=== PATIENT | male | born 1945 | race Caucasian/White ===

== ENCOUNTER 2018-08-18 11:45 | Observation (INO) ==
--- NOTE | 2018-08-18 12:23 | ED ---
HPI General Chief complaint: Skin/Abscess/Foreign Body Stated complaint: Throat Complaint Time Seen by Provider: 08/18/18 11:59 Source: patient Mode of arrival: ambulatory Limitations: no limitations History of Present Illness HPI narrative: Patient is a 73-year-old male with a history of atrial fib on Xarelto who presents to the emergency room with complaints of difficulty swallowing. She states he ate some steak last night and has been unable to keep liquids down since that time. Patient states he has had 2 prior episodes of similar incident which required EGD for retrieval of the retained food item. She is visiting here from [place] so does not have a local gastrointestinal specialist. Upon arrival the patient's heart rate is 172 with a BP of 2 10/01/2016. He states he was unable to take his morning medications due to inability to swallow. He complains of more epigastric discomfort secondary to difficulty swallowing. Related Data Home Medications Medication Instructions Recorded Confirmed albuterol sulfate [ProAir HFA] 2 puff INHALATION Q4H PRN 08/18/18 08/18/18 allopurinol [Zyloprim] 100 mg PO DAILY 08/18/18 08/18/18 atorvastatin [Lipitor] 20 mg PO DAILY 08/18/18 08/18/18 esomeprazole magnesium [Nexium] 40 mg PO DAILY 08/18/18 08/18/18 fluticasone [Flonase Allergy 2 spray INTRANASAL DAILY 08/18/18 08/18/18 Relief] furosemide [Lasix] 20 mg PO DAILY 08/18/18 08/18/18 losartan [Cozaar] 50 mg PO DAILY 08/18/18 08/18/18 magnesium oxide 400 mg PO TID 08/18/18 08/18/18 metformin 1,000 mg PO BID 08/18/18 08/18/18 metoprolol tartrate [Lopressor] 150 mg PO BID 08/18/18 08/18/18 omega-3 acid ethyl esters 1 cap PO TID 08/18/18 08/18/18 omeprazole 20 mg PO DAILY 08/18/18 08/18/18 potassium chloride 20 meq PO BID 08/18/18 08/18/18 rivaroxaban [Xarelto] 20 mg PO QPM 08/18/18 08/18/18 Allergies Allergy/AdvReac Type Severity Reaction Status Date / Time No Known Allergies Allergy Verified 02/16/19 12:01 Review of Systems ROS: all other systems reviewed are negative [facility] Medical History Medical History Atrial fibrillation (Acute) CHF (congestive heart failure) (Acute) COPD (chronic obstructive pulmonary disease) (Acute) Chronic GERD (Acute) Diabetes (Acute) FH: cholecystectomy (Acute) Gout (Acute) HTN (hypertension) (Acute) High cholesterol (Acute) History of sinus problem (Acute) Surgical History Surgical History History of bronchoscopy (Acute) Social History Social History Substance History: No History of Abuse Second Hand Smoke Exposure: No Smoking Status: Former smoker How Often Do You Have a Drink Containing Alcohol: 2 to 4 times a month Recent Travel in [facility] within the Last 8 Weeks: No Recent Out of Country Travel within the Last 8 Weeks: No Immunization History Tetanus Immunization: <5 Years Exam Narrative Exam Narrative: GENERAL: Alert, morbidly obese, male. SKIN: Focused skin assessment warm/dry. Chronic cellulitis bilateral lower extremities. HEAD: Atraumatic. Normocephalic. EYES: Pupils equal and round. No scleral icterus. No injection or drainage. ENT: No nasal bleeding or discharge. Mucous membranes pink and moist. NECK: Trachea midline. No JVD. CARDIOVASCULAR: Regular rate and rhythm. No murmur appreciated. RESPIRATORY: No accessory muscle use. Clear to auscultation. Breath sounds equal bilaterally. GASTROINTESTINAL: Abdomen soft, epigastric tenderness. Nondistended. Hepatic and splenic margins not palpable. MUSCULOSKELETAL: No obvious deformities. No clubbing. No cyanosis. No edema. NEUROLOGICAL: Awake and alert. No obvious cranial nerve deficits. Motor grossly within normal limits. Normal speech. PSYCHIATRIC: Appropriate mood and affect; insight and judgment normal. Course Reevaluation(s) Reevaluation #1: Patient had food bolus obstruction which was removed with EGD. Dr. pacheco states that patient need to be placed on a Cardizem drip and he will need to be admitted to the hospital for further care. This was from the operating room Consultations Consultation #1: dr wilson agrees to admit Initial Documented Vital Signs Temperature 97.4 F L 08/18/18 11:48 Pulse Rate 146 H 08/18/18 11:48 Respiratory Rate 18 08/18/18 11:48 Blood Pressure 170/110 H 08/18/18 11:48 Pulse Oximetry 96 08/18/18 11:48 Last Documented Vital Signs Temperature 97.2 F L 08/18/18 14:50 Pulse Rate 90 08/18/18 15:30 Respiratory Rate 17 08/18/18 15:30 Blood Pressure 119/64 08/18/18 15:30 Pulse Oximetry 97 08/18/18 15:30 Medical Decision Making BUSHRA Attestation BUSHRA supervised visit: Yes Attestation: I, Dr. pradhan, have reviewed the advance practice practitioner's documentation and am in agreement, met with the patient face to face, made the diagnosis, and the medical decision making was done by me. *My assessment and Findings: 73-year-old male who has a food bolus impaction type presentation where he cannot swallow water after having steak last night. He was not able to take his dose of metoprolol today and now he is in A. fib with RVR. He will be given a dose of IV Cardizem while we await GI who has agreed to scope him given his symptom presentation. If his heart rate goes up he will be given additional medications. MDM Narrative Medical decision making narrative: Patient is a 73-year-old male who presents the emergency room with complaints of meat being stuck from last night and difficulty swallowing. Patient has had 2 episodes of this previously and has required EGD for removal. He states no history of esophageal stricture/ dilation. Upon arrival patient's blood pressure is 204 117 with a heart rate of 172. He was unable to take his morning meds this morning. He was assessed at bedside and asked to swallow water. Within a minute he vomited. Dr. Pradhan spoke with GI, Dr. Hammond, and advised him of the situation. Patient will be given Cardizem IV for BP and heart rate control. To OR: Medical Screen Exam Complete: Yes Emergency Medical Condition: Yes Lab Data Result diagrams: 08/18/18 12:05 08/18/18 12:05 Lab Results 08/18/18 08/18/18 08/18/18 Range/Units 12:05 12:05 15:08 WBC 4.8 (4.0-11.0) th/mm3 RBC 4.48 L (4.50-5.90) mil/mm3 Hgb 14.3 (13.0-17.0) gm/dL Hct 41.1 (39.0-51.0) % MCV 91.9 (80.0-100.0) fL MCH 32.0 (27.0-34.0) pg MCHC 34.8 (32.0-36.0) % RDW 19.3 H (11.6-17.2) % Plt Count 209 (150-450) th/mm3 MPV 7.8 (7.0-11.0) fL Neut % (Auto) 57.2 (16.0-70.0) % Lymph % (Auto) 27.6 (9.0-44.0) % Orange % (Auto) 10.7 H (0.0-8.0) % Eos % (Auto) 3.8 (0.0-4.0) % Baso % (Auto) 0.7 (0.0-2.0) % Neut # (Auto) 2.7 (1.8-7.7) th/mm3 Lymph # (Auto) 1.3 (1.0-4.8) th/mm3 Orange # (Auto) 0.5 (0.0-0.9) th/mm3 Eos # (Auto) 0.2 (0.0-0.4) th/mm3 Baso # (Auto) 0.0 (0.0-0.2) th/mm3 WBC Differential . Differential Comment Auto diff final Sodium 139 (136-145) meq/L Potassium 3.8 (3.5-5.1) meq/L Chloride 102 (98-107) meq/L Carbon Dioxide 28.4 (21.0-32.0) meq/L Anion Gap 9 (5-15) meq/L BUN 14 (7-18) mg/dL Creatinine 0.91 (0.60-1.30) mg/dL Estimated GFR 82 L (>89) mL/min POC Glucose 95 (68-110) mg/dl Random Glucose 106 (74-106) mg/dL Calcium 9.3 (8.5-10.1) mg/dL Magnesium 1.5 (1.5-2.5) mg/dL Discharge Plan Discharge Disposition Patient Disposition: ED Admit(ED Internal Use Only) Discharge Order Discharge Orders: ED Use Only Admit Order (Routine); Ordered 08/18/18 Ordered By: Chanel Pradhan Discharge Details Diagnosis: Atrial fibrillation with RVR Physicians Team ED Provider: Chanel Pradhan ED Midlevel Provider: Evelyn Caraballo Primary Care Provider: [facility] Attending Provider: Shey Pacheco Discharge Interventions Interventions: Vital Signs Last Done: 08/18/18 15:30 Status ED Status: Admitted Observation Patient
[2018-08-18 12:45] LABS: Calcium 9.3 mg/dL (8.5-10.1); Carbon Dioxide 28.4 meq/L (21.0-32.0); Magnesium 1.5 mg/dL (1.5-2.5); Potassium 3.8 meq/L (3.5-5.1)
[2018-08-18 12:47] LABS: Baso % (Auto) 0.7 % (0.0-2.0); Eos # (Auto) 0.2 th/mm3 (0.0-0.4); Eos % (Auto) 3.8 % (0.0-4.0); Hematocrit 41.1 % (39.0-51.0); Hemoglobin 14.3 gm/dL (13.0-17.0); Lymph # (Auto) 1.3 th/mm3 (1.0-4.8); Lymph % (Auto) 27.6 % (9.0-44.0); Mean Corpuscular HGB Conc 34.8 % (32.0-36.0); Mean Corpuscular Volume 91.9 fL (80.0-100.0); Mean Platelet Volume 7.8 fL (7.0-11.0); Mono # (Auto) 0.5 th/mm3 (0.0-0.9); Mono % (Auto) 10.7 % (0.0-8.0); Neut # (Auto) 2.7 th/mm3 (1.8-7.7); Neut % (Auto) 57.2 % (16.0-70.0); Platelet Count 209 th/mm3 (150-450); Red Blood Count 4.48 mil/mm3 (4.50-5.90); Red Cell Distribution Width 19.3 % (11.6-17.2); White Blood Count 4.8 th/mm3 (4.0-11.0)
[2018-08-18] MEDS ORDERED: fentaNYL Citrate Inj 100 MCG/2 ML Ampul ONE (13:15)
[2018-08-18] MEDS ORDERED: Phenylephrine/NS 1000 MCG/10ML Syringe IV.PUSH ONE (13:50)
[2018-08-18] MEDS ORDERED: Lidocaine PF 1% Inj 5 ML Syringe OTHER ONE (13:50)
[2018-08-18] MEDS ORDERED: Succinylcholine Inj 100 MG/5 ML Syringe IV.PUSH ONE (13:50)
[2018-08-18] MEDS ORDERED: Metoprolol Inj 5 MG/5 ML Vial IV.PUSH ONE (13:50)
[2018-08-18] MEDS ORDERED: dilTIAZem Inj 125 MG in Sodium Chlor 0.9% Inj 100 ML IV.CONT PRN (14:21)
--- NOTE | 2018-08-18 14:46 | GIPROC ---
[facility] [address] [facility]. [facility], [address] EGD PROCEDURE REPORT EXAM DATE: 08/18/2018 PATIENT NAME: Zackary Tolbert MR #: [id number] BIRTHDATE: 1945 ATTENDING: Shey Pacheco MD ORDER #: [id number] FISH BIN TENDER: Salome Niño and Yarely Young STATUS: outpatient INDICATIONS: The patient is a 73 yr old male here for an EGD due to foreign body removal from esophagus and dysphagia PROCEDURE PERFORMED: EGD w/ fb removal MEDICATIONS: None and Per Anesthesia. TOPICAL ANESTHETIC: CONSENT: The patient understands the risks and benefits of the procedure and understands that these risks include, but are not limited to: sedation, allergic reaction, infection, perforation and/or bleeding. Alternative means of evaluation and treatment include, among others: physical exam, x-rays, and/or surgical intervention. The patient elects to proceed with this endoscopic procedure. medical equipment was checked for proper function. Hand hygiene and appropriate measures for infection prevention was taken. After the risks, benefits and alternatives of the procedure were thoroughly explained, Informed consent was verified, confirmed and timeout was successfully executed by the treatment team. The patient was anesthetized with topical anesthesia and the Pentax [id number] endoscope was introduced through the mouth and advanced to the second portion of the duodenum. Retroflexed views revealed no abnormalities The gastroscope was then slowly withdrawn and removed. ESOPHAGUS: Meat bolus distal esophagus. Pulled out piecemeal through the mouth. Esophageal narrowing distal esophagus. STOMACH: The mucosa of the stomach appeared normal. DUODENUM: The duodenal mucosa appeared normal in the bulb and second portion of the duodenum. ADVERSE EVENTS: There were no complications. IMPRESSIONS: 1. Meat bolus distal esophagus. Pulled out piecemeal through the mouth. Esophageal narrowing distal esophagus 2. The mucosa of the stomach appeared normal 3. Normal duodenal mucosa in the bulb and second portion of the duodenum 4. Retroflexed views revealed no abnormalities RECOMMENDATIONS: 1. Anti-reflux regimen 2. Continue PPI PATIENT CONDITION: stable DISPOSITION: Observation REPEAT EXAM: Return 1 month EGD with dilatation Shey Pacheco MD eSigned: Shey Pacheco MD 08/18/2018 2:46 PM cc: PATIENT NAME: Zackary Tolbert MR#: [id number]
--- NOTE | 2018-08-18 15:36 | MB ---
cc: Shey Pacheco MD, Cindy M MD DATE: 08/18/2018 REASON FOR CONSULTATION: Dysphagia, esophageal foreign body. HISTORY OF PRESENT ILLNESS: Mr. Roach is a 73-year-old gentleman who was in atrial fibrillation, takes Xarelto, basically presented after he was eating steak last night. He says since then he has not been able to eat or drink anything. He states he has had previous problems with this at least twice in [facility], last one was about a year or so ago where he had esophageal foreign body removed. He does not know if any other interventions were undertaken. He is not able to swallow his saliva at this time. REVIEW OF SYSTEMS: No apparent distress, rapid heart rate, dysphagia, inability to swallow saliva. PAST MEDICAL HISTORY: Atrial fibrillation, congestive heart failure, COPD, reflux disease, diabetes, gout, hypertension, hypercholesterolemia. PAST SURGICAL HISTORY: Cholecystectomy, previous EGD with foreign body removal, history of bronchoscopy. SOCIAL HISTORY: No alcohol. A former smoker. PHYSICAL EXAMINATION: GENERAL: Reveals an obese man, in no apparent distress. VITAL SIGNS: Stable. HEAD AND NECK: Anicteric sclerae. LUNGS: Bilateral air entry with rales. ABDOMEN: Obese, soft, nontender. No hepatosplenomegaly. Bowel sounds are present. CENTRAL NERVOUS SYSTEM: Nonfocal. RECTAL: Deferred at this time. IMPRESSION: Foreign body, meat impaction in the esophagus. RECOMMENDATIONS: Heart rate needs to be controlled. Emergent endoscopy under general anesthesia planned. Further recommendations to follow heard 1. Shey Pacheco MD / , 02:43 PM , 02:47 PM
[2018-08-18] MEDS ORDERED: Acetaminophen 325 MG Tablet PO PRN (15:52)
--- NOTE | 2018-08-18 16:08 | ECG ---
Date Performed: 08/18/2018 Time Performed: 11:58:05 PTAGE: 73 years EKG: ATRIAL FIBRILLATION WITH RAPID VENTRICULAR RESPONSE LEFT BUNDLE BRANCH BLOCK ABNORMAL ECG NO PREVIOUS TRACING DOCTOR: Zeus Ferrer Interpretating Date/Time 08/18/2018 16:08:19
--- NOTE | 2018-08-18 16:48 | P.HPIM ---
History of Present Illness Primary Care Physician: [facility] History of Present Illness: 73-year-old male with a history of dysphagia, hypertension, type 2 diabetes, atrial fibrillation presented to the ER today with a lodged food bolus. He was out to dinner last night and had steak to celebrate his 49th anniversary with his . A piece of steak became lodged, he attempted to give it time by resting overnight and continuing with sips of water, this did not resolve the issue so he came in this morning. GI brought him to the lab and dislodged the food successfully. However, as his his pattern , his atrial fibrillation became aggravated and he was found to be in atrial fibrillation with RVR. He reports this happens every time he has a piece of lodged food, this is his third time with lodged food bolus. He is currently rate controlled with a diltiazem drip, he denies any shortness of breath or chest pain. He is going to be admitted overnight for weaning of the diltiazem drip and if he is able to maintain a regular rate on p.o. medications he may be discharged home. He denies any nausea, vomiting or diarrhea. He denies any fevers, upper respiratory symptoms. Review of Systems Review of Systems: all other systems reviewed are negative [facility] Medical History Medical History Atrial fibrillation (Acute) CHF (congestive heart failure) (Acute) COPD (chronic obstructive pulmonary disease) (Acute) Chronic GERD (Acute) Diabetes (Acute) FH: cholecystectomy (Acute) Gout (Acute) HTN (hypertension) (Acute) High cholesterol (Acute) History of sinus problem (Acute) Surgical History Surgical History History of bronchoscopy (Acute) Family History Family History Other Hypertension Social History Social History Substance History: No History of Abuse Second Hand Smoke Exposure: No Smoking Status: Former smoker How Often Do You Have a Drink Containing Alcohol: 2 to 4 times a month Recent Travel in [facility] within the Last 8 Weeks: No Recent Out of Country Travel within the Last 8 Weeks: No Immunization History Tetanus Immunization: <5 Years Medications and Allergies Allergies Allergy/AdvReac Type Severity Reaction Status Date / Time No Known Allergies Allergy Verified 08/18/18 12:01 Home Medications Medication Instructions Recorded Confirmed Type albuterol sulfate [ProAir HFA] 2 puff INHALATION Q4H PRN 08/18/18 08/18/18 History allopurinol [Zyloprim] 100 mg PO DAILY 08/18/18 08/18/18 History atorvastatin [Lipitor] 20 mg PO DAILY 08/18/18 08/18/18 History esomeprazole magnesium [Nexium] 40 mg PO DAILY 08/18/18 08/18/18 History fluticasone [Flonase Allergy 2 spray INTRANASAL DAILY 08/18/18 08/18/18 History Relief] furosemide [Lasix] 20 mg PO DAILY 08/18/18 08/18/18 History losartan [Cozaar] 50 mg PO DAILY 08/18/18 08/18/18 History magnesium oxide 400 mg PO TID 08/18/18 08/18/18 History metformin 1,000 mg PO BID 08/18/18 08/18/18 History metoprolol tartrate [Lopressor] 150 mg PO BID 08/18/18 08/18/18 History omega-3 acid ethyl esters 1 cap PO TID 08/18/18 08/18/18 History omeprazole 20 mg PO DAILY 08/18/18 08/18/18 History potassium chloride 20 meq PO BID 08/18/18 08/18/18 History rivaroxaban [Xarelto] 20 mg PO QPM 08/18/18 08/18/18 History Active Medications: Active Medications Acetaminophen (Tylenol) 650 mg PO Q4H PRN PRN Reason: Temp > 100.4 Diltiazem HCl 125 mg/ Sodium (Chloride) 125 mls @ 5 mls/hr IV.CONT TITRATE PRN ; Protocol PRN Reason: Per Protocol Last Titration: 08/18/18 15:45 Dose: 8 mg/hr, 8 mls/hr Miscellaneous Information ([facility]) 0 each OTHER UNSCH PRN PRN Reason: SEE LABEL COMMENTS Stop: 08/19/18 14:51 Ondansetron HCl (Zofran Inj) 4 mg IV.PUSH Q6H PRN PRN Reason: NAUSEA OR VOMITING Sennosides (Senokot) 17.2 mg PO Q12H PRN PRN Reason: Moderate Constipation Sodium Chloride (Ns Flush) 2 ml IV.FLUSH PRN PRN PRN Reason: FLUSH AFTER USING IV ACCESS Last Admin: 08/18/18 12:21 Dose: 2 ml Sodium Chloride (Ns Flush) 2 ml IV.FLUSH BID JOELLE Sodium Chloride (Ns Flush) 2 ml IV.FLUSH PRN PRN PRN Reason: FLUSH AFTER USING IV ACCESS Physical Exam Vital signs: Vital Signs 08/18/18 11:48 08/18/18 12:00 08/18/18 12:21 Temperature 97.4 F L Pulse Rate 146 H 172 H 108 H Respiratory Rate 18 30 H 16 Blood Pressure 170/110 H 204/117 H 157/89 H Pulse Oximetry 96 97 95 08/18/18 12:25 08/18/18 12:45 08/18/18 13:00 Temperature Pulse Rate 95 H 105 H 104 H Respiratory Rate 16 18 18 Blood Pressure 152/71 H 145/69 H 135/66 Pulse Oximetry 96 99 96 08/18/18 13:15 08/18/18 14:50 08/18/18 15:00 Temperature 97.2 F L Pulse Rate 94 H 143 H 134 H Respiratory Rate 19 16 21 Blood Pressure 139/67 111/90 124/97 H Pulse Oximetry 94 L 94 L 96 08/18/18 15:15 08/18/18 15:30 08/18/18 15:45 Temperature 97.5 F L Pulse Rate 99 H 90 96 H Respiratory Rate 19 17 20 Blood Pressure 119/62 119/64 125/78 Pulse Oximetry 97 97 98 08/18/18 15:54 Temperature Pulse Rate 96 H Respiratory Rate 19 Blood Pressure 142/67 H Pulse Oximetry 93 L Intake & Output 08/17/18 08/18/18 08/18/18 18:59 06:59 18:59 Intake Total 700 / 700 Balance 700 / 700 Weight 140.614 kg Intake: Anesthesia Amount 700 / 700 Narrative: GENERAL: AAOx3, no acute distress, adequate nutrition, obese SKIN: Warm and dry, no rashes. HEAD: Atraumatic. Normocephalic. EYES: Pupils equal, round, reactive to light. No scleral icterus. No injection or drainage. ENT: No nasal bleeding or discharge. Moist mucous membranes. Nonerythematous oropharynx. NECK: Trachea midline. No JVD. Thyroid size within normal limits. CARDIOVASCULAR: Irregularly irregular, rate in the 90s. 2/6 systolic ejection murmur, no gallops, no rubs. RESPIRATORY: Clear and equal to auscultation bilaterally. No crackles, no wheezes. No accessory muscle use. GASTROINTESTINAL: Abdomen soft, non-tender, nondistended, normal active bowel sounds. Hepatic and splenic margins not palpable. MUSCULOSKELETAL: Extremities without clubbing or cyanosis. No obvious deformities. Trace edema. NEUROLOGICAL: Awake and alert. No obvious cranial nerve deficits. Motor grossly within normal limits. No focal deficits. Five out of 5 muscle strength in the arms and legs. Normal speech. PSYCHIATRIC: Appropriate mood and affect; insight and judgment normal. Results Labs CBC & Chem 7: 08/18/18 12:05 08/18/18 12:05 Caprini VTE Risk Assessment Caprini VTE Risk Assessment: Moderate/High Risk (score >= 2) Caprini Risk Assessment Model: Point Value = 1 Point Value = 2 Point Value = 3 Point Value = 5 Age 41-60 Minor surgery BMI > 25 kg/m2 Swollen legs Varicose veins or History of unexplained or recurrent spontaneous Oral contraceptives or hormone replacement Sepsis (< 1 month) Serious lung disease, including pneumonia (< 1 month) Abnormal pulmonary function Acute myocardial infarction Congestive heart failure (< 1 month) History of inflammatory bowel disease Medical patient at bed rest Age 61-74 Arthroscopic surgery Major open surgery (> 45 min) Laparoscopic surgery (> 45 min) Malignancy Confined to bed (> 72 hours) Immobilizing plaster cast Central venous access Age >= 75 History of VTE Family history of VTE Factor V Leiden Prothrombin [id number] Lupus anticoagulant Anticardiolipin antibodies Elevated serum homocysteine Heparin-induced thrombocytopenia Other congenital or acquired thrombophilia Stroke (< 1 month) Elective arthroplasty Hip, pelvis, or leg fracture Acute spinal cord injury (< 1 month) Prophylaxis Regimen: Total Risk Factor Score Risk Level Prophylaxis Regimen 0-1 Low Early ambulation 2 Moderate Order ONE of the following: *Sequential Compression Device (SCD) *Heparin 5000 units SQ BID 3-4 Higher Order ONE of the following medications: *Heparin 5000 units SQ TID *Enoxaparin/Lovenox 40 mg SQ daily (WT < 150 kg, CrCl > 30 mL/min) *Enoxaparin/Lovenox 30 mg SQ daily (WT < 150 kg, CrCl > 10-29 mL/min) *Enoxaparin/Lovenox 30 mg SQ BID (WT < 150 kg, CrCl > 30 mL/min) AND/OR *Sequential Compression Device (SCD) 5 or more Highest Order ONE of the following medications: *Heparin 5000 units SQ TID (Preferred with Epidurals) *Enoxaparin/Lovenox 40 mg SQ daily (WT < 150 kg, CrCl > 30 mL/min) *Enoxaparin/Lovenox 30 mg SQ daily (WT < 150 kg, CrCl > 10-29 mL/min) *Enoxaparin/Lovenox 30 mg SQ BID (WT < 150 kg, CrCl > 30 mL/min) AND *Sequential Compression Device (SCD) Assessment and Plan Plan Atrial fibrillation with RVR Continue on diltiazem drip, slowly wean such as to maintain heart rate below 100 Admit to [facility], follow on telemetry Continue Xarelto Food bolus, s/p removal Patient had a piece of steak that became stuck last night at dinner His pattern is that when he has food stuck it triggers A. fib with RVR Food has been removed successfully Appreciate GI intervention Obstructive sleep apnea Patient uses CPAP at home, settings are PIP of 14 and PEEP of 5 Type 2 diabetes Accu-Cheks with sliding scale insulin coverage Diabetic diet Hypertension, CHF Continue metoprolol, losartan, diltiazem Continue Lasix GERD Continue Nexium DVT prophylaxis Xarelto
[2018-08-18] MEDS ORDERED: Rivaroxaban 20 MG Tablet PO SCH (18:00)
[2018-08-18] MEDS: Magnesium Oxide 400 MG Tablet PO SCH (18:03)
[2018-08-18] MEDS: Metoprolol Tartrate 50 MG Tablet PO SCH (20:10)
[2018-08-18] MEDS ORDERED: traZODone 100 MG Tablet PO PRN (21:54)
[2018-08-19 05:22] VITALS: O2SAT 95
[2018-08-19 08:17] VITALS: BP 161/90; RESP 16; TEMP 97.9
[2018-08-19] MEDS: Magnesium Oxide 400 MG Tablet PO SCH (08:18)
[2018-08-19] MEDS: Metoprolol Tartrate 50 MG Tablet PO SCH (08:19)
[2018-08-19] MEDS ORDERED: Furosemide 20 MG Tablet PO SCH (09:00)
[2018-08-19 09:32] LABS: Baso % (Auto) 0.9 % (0.0-2.0); Eos # (Auto) 0.2 th/mm3 (0.0-0.4); Eos % (Auto) 4.7 % (0.0-4.0); Hematocrit 38.3 % (39.0-51.0); Lymph # (Auto) 1.1 th/mm3 (1.0-4.8); Lymph % (Auto) 26.1 % (9.0-44.0); Mean Corpuscular Hemoglobin 31.2 pg (27.0-34.0); Mean Corpuscular Volume 91.8 fL (80.0-100.0); Mean Platelet Volume 7.9 fL (7.0-11.0); Mono # (Auto) 0.5 th/mm3 (0.0-0.9); Mono % (Auto) 10.9 % (0.0-8.0); Neut # (Auto) 2.4 th/mm3 (1.8-7.7); Neut % (Auto) 57.4 % (16.0-70.0); Platelet Count 180 th/mm3 (150-450); Red Blood Count 4.17 mil/mm3 (4.50-5.90); Red Cell Distribution Width 19.2 % (11.6-17.2); White Blood Count 4.2 th/mm3 (4.0-11.0)
[2018-08-19 09:59] LABS: Anion Gap 8 meq/L (5-15); Blood Urea Nitrogen 13 mg/dL (7-18); Carbon Dioxide 28.7 meq/L (21.0-32.0); Chloride 104 meq/L (98-107); Glomerular Filtration Rate Greater Than 89 mL/min (>89); Glucose,Random 84 mg/dL (74-106); Potassium 3.9 meq/L (3.5-5.1); Sodium 141 meq/L (136-145)
[2018-08-19 10:59] VITALS: PULSE 76
--- NOTE | 2018-08-19 12:39 | P.PNIM ---
Subjective Interval history: Nursing denies any deterioration since last night. Patient himself tolerated breakfast well, denies any chest pain or nausea or vomiting. Wants to go home. Physical Exam Vital signs: Vital Signs 08/18/18 12:45 08/18/18 13:00 08/18/18 13:15 Temperature Pulse Rate 105 H 104 H 94 H Respiratory Rate 18 18 19 Blood Pressure 145/69 H 135/66 139/67 Pulse Oximetry 99 96 94 L 08/18/18 14:50 08/18/18 15:00 08/18/18 15:15 Temperature 97.2 F L Pulse Rate 143 H 134 H 99 H Respiratory Rate 16 21 19 Blood Pressure 111/90 124/97 H 119/62 Pulse Oximetry 94 L 96 97 08/18/18 15:30 08/18/18 15:45 08/18/18 15:54 Temperature 97.5 F L Pulse Rate 90 96 H 96 H Respiratory Rate 17 20 19 Blood Pressure 119/64 125/78 142/67 H Pulse Oximetry 97 98 93 L 08/18/18 16:30 08/18/18 17:30 08/18/18 18:25 Temperature Pulse Rate 85 91 H 99 H Respiratory Rate 18 16 16 Blood Pressure 135/75 131/64 148/91 H Pulse Oximetry 96 96 08/18/18 19:00 08/18/18 20:00 08/18/18 21:00 Temperature 97.6 F Pulse Rate 120 H 102 H 68 Respiratory Rate 18 Blood Pressure 148/89 H Pulse Oximetry 93 L 08/18/18 22:00 08/18/18 23:00 08/19/18 00:00 Temperature 97.9 F Pulse Rate 64 74 74 Respiratory Rate 18 Blood Pressure 116/65 Pulse Oximetry 97 08/19/18 01:00 08/19/18 02:00 08/19/18 03:00 Temperature Pulse Rate 72 67 65 Respiratory Rate Blood Pressure Pulse Oximetry 08/19/18 04:00 08/19/18 05:00 08/19/18 06:00 Temperature 98.0 F Pulse Rate 87 77 90 Respiratory Rate 18 Blood Pressure 107/58 L Pulse Oximetry 95 08/19/18 07:00 08/19/18 08:00 08/19/18 08:16 Temperature 97.9 F Pulse Rate 80 76 78 Respiratory Rate 16 Blood Pressure 161/90 H Pulse Oximetry 95 08/19/18 09:00 08/19/18 10:00 Temperature Pulse Rate 78 76 Respiratory Rate Blood Pressure Pulse Oximetry Intake & Output 08/18/18 08/19/18 08/19/18 18:59 06:59 18:59 Intake Total 700 / 700 240 / 240 550 / 550 Output Total 200 / 200 420 / 420 Balance 700 / 700 40 / 40 130 / 130 Weight 140.614 kg 138.3 kg Intake: IV 70 / 70 Cardizem Inj 125 MG In NS Inj 70 / 70 100 ML @ 5 MG/HR 5 mls/hr IV. CONT TITRATE PRN Rx#:[id number] Oral 240 / 240 480 / 480 Anesthesia Amount 700 / 700 Output: Urine 200 / 200 420 / 420 Other: Date of Last Bowel Movement 08/19/18 08/18/18 # Bowel Movements 1 Narrative: Heart sounds regular rate and rhythm, clear lungs bilaterally, unlabored breathing Awake alert, no acute distress No lower extremity edema Abdomen soft, nontender, nondistended No facial droop, no slurred speech Moves all 4 extremities spontaneously Results Labs CBC & Chem 7: 08/19/18 07:22 08/19/18 07:22 Assessment and Plan Plan 73-year-old white male admitted with esophageal dysphagia with impacted food bolus. Had food bolus removed via EGD. Also had A. fib with RVR which was controlled with Cardizem. Patient doing well post procedure and off Cardizem drip. tolerating meals well. Patient says he will follow-up with his GI doctor in the [place] after discharge. He was given the option of following up with a local GI doctor. Patient has been maximal benefit from hospitalization is clinically stable for discharge.
== END 2018-08-19 12:39 | disposition home or self-care (01) ==
LOC: NEPC 11:45 → INTOOBSV 15:57 → NEDA 15:57 → HCIS 18:35
PROVIDERS: ADMIT Hospitalist; ATTEND Hospitalist
DX: E66.01 Morbid (severe) obesity due to excess calories; J44.9 Chronic obstructive pulmonary disease, unspecified; I11.0 Hypertensive heart disease with heart failure; I48.91 Unspecified atrial fibrillation; Z87.891 Personal history of nicotine dependence; L03.115 Cellulitis of right lower limb; L03.116 Cellulitis of left lower limb; E78.00 Pure hypercholesterolemia, unspecified; E11.9 Type 2 diabetes mellitus without complications; R13.14 Dysphagia, pharyngoesophageal phase; G47.33 Obstructive sleep apnea (adult) (pediatric); Z79.01 Long term (current) use of anticoagulants; I50.9 Heart failure, unspecified; K21.9 Gastro-esophageal reflux disease without esophagitis; Z79.899 Other long term (current) drug therapy
CPT/HCPCS: 80048; 82948; 82962; 83735; 85025; 90765; 90775; 93005; 96365; 96375; 99285; G0378; J0330; J2370; J2704; J3010